=== PATIENT | female | born 1970 | race African-American/Black ===

== ENCOUNTER 2021-02-11 09:26 | Outpatient (CLI) | payer OTHER, SELFPAY ==
[2021-02-15 14:28] LABS: Thyroid Stimulating Immunoglob <89 % baseline (<140)
== END 2021-02-11 09:27 | disposition home or self-care (01) ==
LOC: ANHWCLAB 09:31
PROVIDERS: PCP Internal Medicine; Visit Provider Internal Medicine Endocrinology, Diabetes & Metabolism
DX: E05.90 Thyrotoxicosis, unspecified without thyrotoxic crisis or storm (principal)
CPT/HCPCS: 36415; 84439; 84443; 84445; 84480

== ENCOUNTER 2023-02-14 07:48 | Outpatient (CLI) | payer OTHER, SELFPAY ==
--- NOTE | ~2023-02-14 | MR_ITS ---
EXAMINATION: MR MRCP wo/w con/w 3D wo ind DATE: 02/14/2023 09:22 INDICATION: Biliary obstruction. Epigastric abdominal pain. TECHNIQUE: Magnetic resonance imaging (MRI) of the abdomen was performed without and with 19 mL Multi Tegan intravenous contrast. Sequences included coronal T2-weighted FS FSE, coronal T2-weighted FSE, a xial T1-weighted LAVA, coronal FS FIESTA, axial dual-echo T1-weighted SPGR, coronal lava-FLEX, sagitt al T2-weighted FSE, axial T2-weighted FSE, and axial DWI. Thick-slab T2-weighted FSE images were obta ined for magnetic resonance cholangiopancreatography (MRCP). Maximum intensity projection 3-D reconst ructions of the volumetric data were created by the technologist. Postcontrast sequences included cor onal LAVA-flex and time course of axial T1-weighted LAVA. COMPARISON: None. FINDINGS: ABDOMEN MRI: There is diffuse hepatic steatosis. The gallbladder, spleen, pancreas, adrenal glands, a nd kidneys are normal. There are no dilated loops of bowel. There are no pathologically enlarged lymp h nodes. There is no free intraperitoneal fluid. ABDOMEN MRCP: The common duct is normal and measures 6 mm . No choledocholithiasis. IMPRESSION: 1. Normal common duct. No choledocholithiasis. 2. Diffuse hepatic steatosis. Reviewed, dictated and finalized at location A.
== END 2023-02-14 07:49 | disposition home or self-care (01) ==
LOC: ANHIMG 07:51
PROVIDERS: PCP Internal Medicine; Visit Provider Internal Medicine
DX: R93.3 Abnormal findings on diagnostic imaging of other parts of digestive tract (principal); K76.0 Fatty (change of) liver, not elsewhere classified
CPT/HCPCS: 74183; 76376; A9577